=== PATIENT | male | born 1975 | race African-American/Black ===

== ENCOUNTER 2016-11-27 20:23 | Emergency (ER) | payer MEDICAID, OTHER ==
[2016-11-27 20:39] VITALS: BP 138/78
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
[2016-11-27] MEDS ORDERED: Ondansetron ODT TAB* 4 MG PO ONE (21:27)
== END 2016-11-27 22:20 | disposition left against medical advice (07) ==
LOC: UCEAST 20:23
DX: S06.0X9A Concussion with loss of consciousness of unspecified duration, initial encounter (principal); M25.552 Pain in left hip; S70.02XA Contusion of left hip, initial encounter; M70.72 Other bursitis of hip, left hip; M25.532 Pain in left wrist; S60.212A Contusion of left wrist, initial encounter; M25.511 Pain in right shoulder; S46.001A Unspecified injury of muscle(s) and tendon(s) of the rotator cuff of right shoulder, initial encounter; Y35.811A Legal intervention involving manhandling, law enforcement official injured, initial encounter; Y92.9 Unspecified place or not applicable
CPT/HCPCS: 99212; G0463

== ENCOUNTER 2017-04-29 08:10 | Emergency (ER) | payer MEDICAID, OTHER ==
[2017-04-29 08:19] VITALS: BP 142/80
--- NOTE | 2017-04-29 08:38 | UC ---
Complaint Male HPI - HPI Summary HPI Summary: PT C/O 1 WEEK OF DYSURIA AND STRONG SMELLING URINE. DENIES PENILE D/C. NO HIGH RISK SEXUAL ACTIVITY. IS IN A MONOGAMOUS RELATIONSHIP WITH HIS GF. HAS 2 SMALL PAINLESS SPOTS ON SHAFT OF PENIS THAT ARE GOING AWAY. HAS BEEN TAKING AZO WITH SOME RELIEF. - History of Current Complaint Chief Complaint: UCGU Stated Complaint: POSS UTI Time Seen by Provider: 04/29/17 08:24 Hx Obtained From: Patient Onset/Duration: Gradual Onset, Lasting Days, Still Present Timing: Intermittent Severity Initially: Moderate Severity Currently: Moderate Pain Intensity: 0 Pain Scale Used: 0-10 Numeric Character: Burning Aggravating Factor(s): Voiding Associated Signs And Symptoms: Positive: Dysuria. Negative: Back Pain, Fever, Hematuria, Blood in Stool, Rectal Pain, Appetite, Nausea, Vomiting(# Of Episodes =), Penile Swelling, Penile Discharge - Allergies/Home Medications Allergies/Adverse Reactions: Allergies Allergy/AdvReac Type Severity Reaction Status Date / Time No Known Allergies Allergy Verified 04/29/17 09:00 Home Medications: Home Medications Lactobacillus [Probiotic] 1 cap PO DAILY 04/29/17 [History Confirmed 04/29/17] Methenamine-Sodium Salicylate [Azo Urinary Tract Defense 162-162.5 mg] 1 tab PO PRN 04/29/17 [History] PMH/Surg Hx/FS Hx/Imm Hx Previously Healthy: Yes Other History Of: Negative For: HIV, Hepatitis B, Hepatitis C, Anticoagulant Therapy - Surgical History Surgical History: Yes Surgery Procedure, Year, and Place: APPENDECTOMY 1992 bicept tendon surgery - Family History Known Family History: Positive: Cardiac Disease, Hypertension, Diabetes - Social History Alcohol Use: None Substance Use Type: None Smoking Status (MU): Never Smoked Tobacco - Immunization History Most Recent Tetanus Shot: 3 yrs ago Review of Systems Constitutional: Negative Respiratory: Negative Cardiovascular: Negative Gastrointestinal: Negative Genitourinary: Dysuria, Frequency All Other Systems Reviewed And Are Negative: Yes Physical Exam Triage Information Reviewed: Yes Appearance: Well-Appearing, No Pain Distress, Well-Nourished Vital Signs: Initial Vital Signs Temp 98 F 04/29/17 08:16 Pulse 70 04/29/17 08:16 Resp 18 04/29/17 08:16 BP 142/80 04/29/17 08:16 Pulse Ox 100 04/29/17 08:16 Vital Signs Reviewed: Yes Eyes: Positive: Conjunctiva Clear ENT: Positive: Hearing grossly normal Neck: Positive: Supple Respiratory: Positive: No respiratory distress, No accessory muscle use Cardiovascular: Positive: Pulses Normal Abdomen Description: Positive: Nontender, Soft. Negative: CVA Tenderness (R), CVA Tenderness (L), Distended, Guarding Musculoskeletal: Positive: No Edema Neurological: Positive: Alert Psychological: Positive: Age Appropriate Behavior Skin: Negative: rashes Diagnostics - Laboratory Diagnostic Studies Completed/Ordered: URINE DIP SP. GR. 1.025, 1+ BILI, 1+ PROTEIN Complaint Male Course/Dx - Differential Dx/Diagnosis Provider Diagnoses: DYSURIA Discharge - Discharge Plan Condition: Stable Disposition: HOME Prescriptions: Sulfamethox/Trimethoprim DS* [Bactrim DS 800/160 TAB*] 1 tab PO BID #10 tab Patient Education Materials: Dysuria (ED) Referrals: Elie Lopez MD [Medical Doctor] - (keep your appt on 05/13/17) Jay Garcia MD [Medical Doctor] - If Needed Additional Instructions: NO CLEAR UTI ON URINE DIP BUT GIVEN YOUR SYMPTOMS WILL COVER FOR INFECTION WITH BACTRIM. TAKE IT FOR THE FULL 5 DAYS. STAY WELL HYDRATED. WILL SEND YOUR URINE FOR CULTURE TO CONFIRM. WILL ALSO TEST FOR GONORRHEA, CHLAMYDIA, HIV AND SYPHILIS TODAY. IF YOUR SYMPTOMS DO NOT RESOLVE WITH TREATMENT AND ALL YOUR TESTING IS NEGATIVE RECOMMEND FOLLOW-UP WITH UROLOGY.
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
== END 2017-04-29 09:31 | disposition home or self-care (01) ==
LOC: UCEAST 08:10
DX: N50.9 Disorder of male genital organs, unspecified (principal); R30.0 Dysuria; R35.0 Frequency of micturition
CPT/HCPCS: 81003; 87086; 87491; 87591; 99212; G0463